=== PATIENT | female | born 1970 | race Caucasian/White ===

== ENCOUNTER → 2021-07-30 | Outpatient (CLI) | payer OTHER | LOC: MRI 13:00 → EMI 13:04 | DX: I63.9 Cerebral infarction, unspecified (principal); R42 Dizziness and giddiness; F80.81 Childhood onset fluency disorder; R26.81 Unsteadiness on feet | CPT/HCPCS: 70551 ==

== ENCOUNTER 2021-08-10 00:13 | Emergency (ER) | payer OTHER ==
[2021-08-10 02:35] LABS: HEMOGLOBIN 15.6 gm/dl (12.3-15.3); RED BLOOD COUNT 5.08 M/UL (4.00-5.10); WHITE BLOOD COUNT 7.2 K/UL (4.5-11.0)
[2021-08-10 03:03] LABS: BUN/CREATININE RATIO 19 (0-10)
== END 2021-08-10 04:25 | disposition home or self-care (01) ==
LOC: ER1 00:13
PROVIDERS: Family Medicine
DX: R10.10 Upper abdominal pain, unspecified (principal); E11.9 Type 2 diabetes mellitus without complications
CPT/HCPCS: 71045; 80053; 82550; 82553; 83690; 83874; 84484; 85025; 93005; 96374; 96375; 99284; J2270; J2405

== ENCOUNTER → 2021-09-14 | Outpatient (CLI) | payer OTHER | LOC: US 08:25 | DX: R10.11 Right upper quadrant pain (principal) | CPT/HCPCS: 76705 ==

== ENCOUNTER → 2021-10-05 | Outpatient (CLI) | payer OTHER | LOC: CT 09:00 | DX: R10.11 Right upper quadrant pain (principal); E27.9 Disorder of adrenal gland, unspecified | CPT/HCPCS: 36415; 74160; 82565; Q9967 ==